=== PATIENT | male | born 1950 | race Caucasian/White ===

== ENCOUNTER 2017-01-07 12:33 | Emergency (ER) | payer OTHER ==
[~2017-01-07] VITALS: Ht 180.3 cm; Wt 78.7 kg
[2017-01-07] MEDS ORDERED: PLEASE ENTER ALLERGIES MC SCH ×2 (14:00)
[2017-01-07] MEDS ORDERED: NITROGLYCERIN SINGLE TAB 0.4 MG SL PRN (14:00)
[2017-01-07] MEDS ORDERED: SODIUM CHLORIDE FLUSH 10ML SYR IVF ONE (14:00)
[2017-01-07] MEDS ORDERED: NITROGLYCERIN SINGLE TAB 0.4 MG SL ONE (14:04)
[2017-01-07 14:08] LABS: ASPARTATE AMINO TRANSFERASE 22 U/L (15-37); BLOOD UREA NITROGEN 28 mg/dL (7-18)
[2017-01-07 14:11] VITALS: BP 126/66
[2017-01-07 14:14] LABS: IS PT STATUS REG ER OR PRE ER? YES
== END 2017-01-07 15:31 | disposition home or self-care (01) ==
LOC: ED 15:10
DX: R07.89 Other chest pain (principal); R91.8 Other nonspecific abnormal finding of lung field; I10 Essential (primary) hypertension; I49.1 Atrial premature depolarization
CPT/HCPCS: 36415; 71010; 80053; 83605; 84484; 85025; 93005

== ENCOUNTER 2020-11-22 02:16 | Emergency (ER) | payer MEDICARE, OTHER ==
[~2020-11-22] VITALS: Ht 177.8 cm; Wt 80.3 kg
--- NOTE | 2020-11-22 02:39 | NUR ---
BREAK RN: MIDSTERNAL CHEST PRESSURE WITH RADIATION TO LUE X 5 HOURS. ONSET WHILE AT REST, PT WHEELED BACK TO ROOM, CHANGED INTO GOWN, RESTING ON GURNEY, BED IN LOWEST, RAILS ENGAGED, NAD, APPEARS COMFORTABLE. PLACED ON SPO2/BP/ECG MONITORING AT THIS TIME. PROVIDED WARM BLANKETS FOR COMFORT. TM
[2020-11-22 03:06] LABS: BASOPHILS % (AUTO) 1 % (0-1); EOSINOPHILS % (AUTO) 2 % (1-7); LYMPHOCYTES % (AUTO) 28 % (22-44); MEAN CORPUSCULAR HEMOGLOBIN 34.4 pg (27.5-34.5); MEAN CORPUSCULAR HGB CONC 34.6 g/dL (33.2-36.2); MONOCYTES % (AUTO) 13 % (2-9); NEUTROPHILS % (AUTO) 56 % (42-75); PLATELET COUNT 171 x10^3/uL (130-400); RED CELL DISTRIBUTION WIDTH 14.4 % (9.4-14.8)
[2020-11-22 03:08] LABS: MD NO
[2020-11-22 03:18] LABS: ALANINE AMINOTRANSFERASE 19 U/L (12-78); ALBUMIN 3.5 g/dL (3.4-5.0); ANION GAP 7 mmol/L (5-15); CALCIUM 9.3 mg/dL (8.5-10.1); CHLORIDE 107 mmol/L (98-107); CREATININE 1.41 mg/dL (0.7-1.3)
[2020-11-22 03:23] LABS: ALKALINE PHOSPHATASE 74 U/L (45-117); BILIRUBIN,TOTAL 0.8 mg/dL (0.2-1.0); TOTAL PROTEIN 6.5 g/dL (6.4-8.2); TROPONIN I < 0.015 ng/mL (0.000-0.045)
--- NOTE | 2020-11-22 03:48 | NUR ---
PT LAYING IN BED, PT STATES HE IS HAVING 4/10 IN PAIN, THIS RN SUGGESTED PAIN MEDS BUT PT REFUSED AND SAID HE DID NOT WANT ANY PAIN MEDS, PT A/OX4, ALL NEEDS IN REACH, CALL LIGHT IN REACH, FAMILY AT BEDSIDE
[2020-11-22 04:12] VITALS: BP 105/62
== END 2020-11-22 04:20 | disposition home or self-care (01) ==
LOC: ED 04:00
DX: R07.89 Other chest pain (principal); R94.31 Abnormal electrocardiogram [ECG] [EKG]; I10 Essential (primary) hypertension; Z87.891 Personal history of nicotine dependence
CPT/HCPCS: 36415; 71045; 80053; 84484; 85025; 93005; 99285